=== PATIENT | female | born 1930 | race Caucasian/White ===

== ENCOUNTER 2019-06-20 14:51 | Inpatient (IN) | payer OTHER ==
[~2019-06-20] VITALS: Ht 162.6 cm; Wt 62.2 kg
--- NOTE | ~2019-06-20 | EMS ---
[address] [address] EMS Patient Care Report Name: WENDY COBURN Room #: CHEYENNE COMBS M.R.#: [id number] Admission: 06/20/19 Attend Phys: Discharge: Date of : [birth year] Report #: [id number] THIS REPORT FOR: //name// Report Transmitted: 06/20/2019 17:28 EMS Care Summary [facility] MED-ACT Incident [id number] @ 06/20/2019 14:09 Incident Location [address] [place] [address] Patient WENDY COBURN Female, 88 Years 1930 Patient Address [address] [place] [address] Patient History Other, Patient Allergies Other drug allergy, Patient Medications Other, Chief Complaint Nausea and vomiting Disposition Transported No Lights/[place] Dispatch Reason Sick Person Transported To [facility] Narrative CHIEF COMPLAINT: Nausea, vomiting, and hypokalemia H.P.I.: [facility] [address] [place] [address] EMS Patient Care Report Name: WENDY COBURN Room #: CHEYENNE COMBS M.R.#: [id number] Admission: 06/20/19 Attend Phys: Discharge: Date of : 08/21[birth year] Report #: [id number] Wendy Coburn. an 88 y.o.f., has been nauseated and vomiting for the past 34-35 hrs. No treatment given for her nausea by assisted. Labs were drawn yesterday and revealed low potassium level, amongst other adverse levels. Dr. Saenz ordered ambulance transport to [facility] for care. UPON ARRIVAL: Squad 47 crew brought Wendy to us in a wheel chair. Wendy was awake and in no distress and had no complaints. She reported she became nauseated only when taking food, drink or pills by mouth. DISPOSITION: Wendy was assisted to the stretcher, secured in the usual manner. Transport was non-emergent to [facility]. ECG, V/S monitored; info-only radio report. We were directed to rm. 5. We slid Close to the hospital bed. Junie, an RN, received the paperwork and my report. Initial Vitals @14:37Pain: 0/10,DE Suspected: false @14:36Pain: 0/10,DE Suspected: false @14:36P: 96,R: 30,BP: 170/116,Pain: 0/10,GCS: 15,SpO2: 96,Revised Trauma: 11, @14:30P: 98,R: 18,BP: 155/84,Pain: 0/10,GCS: 15,SpO2: 96,Revised Trauma: 12, Assessments @14:30MENTAL:No Abnormalities,SKIN:HEENT:Head/Face: No Abnormalities,Eyes: No Abnormalities,Neck/Airway: No Abnormalities,LUNG SOUNDS:ABDOMEN:PELVIS//GI:EXTREMITIES:Left Leg: Edema,Right Leg: Edema,PULSE:NEURO:No Abnormalities, Impression Nausea Timeline 14:07,Call Received 14:07,Psap Call 14:09,Dispatched 14:10,En Route 14:18,On Scene 14:24,At Patient 14:30,BP: 155/84 M,PULSE: 98,RR: 18 R,SPO2: 96 Ox,ETCO2: ,BG: ,PAIN: 0,GCS: 15, 14:32,Depart Scene 14:36,BP: / M,PULSE: ,RR: R,SPO2: Ox,ETCO2: ,BG: ,PAIN: 0,GCS: , 14:36,BP: 170/116 M,PULSE: 96,RR: 30 R,SPO2: 96 Ox,ETCO2: ,BG: ,PAIN: 0,GCS: 15, 14:37,BP: / M,PULSE: ,RR: R,SPO2: Ox,ETCO2: ,BG: ,PAIN: 0,GCS: , [address] [address] EMS Patient Care Report Name: WENDY COBURN Room #: REG GARRET Montano.#: [id number] Admission: 06/20/19 Attend Phys: Discharge: Date of : 08[birth year] Report #: [id number] 14:40,At Destination 15:25,Call Closed Disclaimer v1.1 Copyright 2020 [employer] This EMS Care Summary contains data elements from the applicable legal record (which may be displayed differently). It is designed to provide pertinent information for the following purposes: continuity of care, clinical quality, and state data reporting. The complete legal record is available to ED staff and administrators of the receiving hospital in [employer]'s Patient Tracker. All data is provided "as is."
[~2019-06-20 14:51] MED LIST: NORCO 5-325 TA1 EACH PO
[2019-06-20 14:54] VITALS: BP 157/90
[2019-06-20 17:58] LABS: HEMATOCRIT 30.4 % (37.0-47.0); HEMOGLOBIN 10.5 gm/dL (12.0-15.0); MCH 32.1 pg (26.0-34.0); MCHC 34.6 g/dL (28.0-37.0); MCV 92.7 fL (80.0-100.0); PLATELET COUNT 112 thou/uL (150-400); RBC 3.28 mil/uL (4.20-5.00); RDW 16.4 % (10.5-14.5); WBC 6.3 thou/uL (4.0-11.0)
[2019-06-20 18:19] LABS: ABSOLUTE NEUTROPHILS 2.7 thou/uL (1.4-8.2); ATYPICAL LYMPHS 1 %
[2019-06-20 18:20] LABS: ANISOCYTOSIS 2+; POLYCHROMASIA OCCASIONAL
[2019-06-20 18:21] LABS: ALBUMIN 2.5 g/dL (3.4-5.0); ANION GAP 13 mmol/L (7-16); BUN 10 mg/dL (7-18); CALCIUM 8.8 mg/dL (8.5-10.1); CHLORIDE 103 mmol/L (98-107); CO2 25 mmol/L (21-32); CREATININE 1.1 mg/dL (0.6-1.0); GLUCOSE 87 mg/dL (74-106); LIPASE 65 U/L (73-393); SGOT 54 U/L (15-37); SGPT 29 U/L (30-65); SODIUM 141 mmol/L (136-145); TOTAL BILIRUBIN 0.5 mg/dL (<0.1-1.0); TOTAL PROTEIN 5.7 g/dL (6.4-8.2); TROPONIN-I <0.06 ng/mL (<0.06)
[2019-06-20 18:23] LABS: POTASSIUM 2.7 mmol/L (3.5-5.1)
[2019-06-20 18:39] LABS: ICTOTEST (BILI CONFIRMATORY) Negative (Negative); URINE BILIRUBIN 1+ (Negative); URINE BLOOD 1+ (Negative); URINE CLARITY SL CLOUDY; URINE COLOR YELLOW; URINE GLUCOSE-RANDOM* NEGATIVE (Negative); URINE KETONES TRACE (Negative); URINE LEUKOCYTES-REFLEX 3+ (Negative); URINE NITRITE-REFLEX NEGATIVE (Negative); URINE PROTEIN (DIPSTICK) 1+ (Negative); URINE SPECIFIC GRAVITY 1.015 (1.005-1.035); URINE UROBILINOGEN 0.2 E.U./dl (0.2-1.0)
[2019-06-20 18:46] LABS: BACTERIA-REFLEX >30 Many /HPF (None Seen); CASTS None Seen /LPF (None Seen); CRYSTALS None Seen /LPF (None Seen); SQUAMOUS 0-3 Few /LPF (0-3); TRANSITIONAL EPITHEL CELL 0-3 Few /LPF (None Seen); URINE RBC 0-2 Rare /HPF (0-2); URINE WBC-REFLEX >25 Many /HPF (0-5)
[2019-06-20] MEDS ORDERED: PROAIR HFA8.5 GM INH (21:13)
[2019-06-20] MEDS ORDERED: LEVO-T50 MCG PO (21:13)
[2019-06-20] MEDS ORDERED: LEVO-T75 MCG PO (21:14)
[2019-06-20] MEDS ORDERED: FOLIC ACID1 MG PO (21:14)
[2019-06-20] MEDS ORDERED: FAMOTIDINE 10 M10 MG PO (21:14)
[2019-06-20] MEDS ORDERED: VITAMIN D21250 MC1 PO (21:15)
[2019-06-20] MEDS ORDERED: ELIQUIS2.5 MG PO (21:15)
[2019-06-20] MEDS ORDERED: MELATONIN1 M1 PO (21:16)
[2019-06-20] MEDS ORDERED: ZESTRIL5 MG PO (21:16)
[2019-06-20] MEDS ORDERED: ANTACID650 MG PO (21:16)
[2019-06-20] MEDS ORDERED: NYSTATIN100000 UNI PO (21:17)
[2019-06-20] MEDS ORDERED: POTASSIUM20 PO (21:18)
[2019-06-20] MEDS ORDERED: ZOFRAN4 MG PO (21:18)
[2019-06-20] MEDS ORDERED: ARTIFICIAL TEAR1510 OPHTHALMIC (21:20)
[2019-06-20] MEDS ORDERED: BAZA CR.1 E1 TOP (21:21)
[2019-06-20] MEDS ORDERED: DIFLUCAN100 MG PO (21:22)
[2019-06-20] MEDS ORDERED: FUROSEMIDE 20 M20 M1 PO (21:22)
[2019-06-20] MEDS ORDERED: KLOR-CON 10 ER10 MEQ PO (21:24)
[2019-06-20] MEDS ORDERED: BENADRYL25 MG PO (21:25)
[2019-06-20] MEDS ORDERED: KLOR-CON M2020 MEQ PO (21:28)
[2019-06-20 21:49] VITALS: BP 165/84
--- NOTE | 2019-06-20 23:44 | NUR ---
MULTIPLE ATTEMPTS AT IV ACCESS WITHOUT LONG LASTING SUCCESS. IV STARTED BY IV THERAPY HAS INFILTRATED. POTASSIUM AND CEFTRIAXONE HAVE INFUSED. DISCUSSED WITH DR SURESH. WILL HAVE IV THERAPY LOOK FOR IV ACCESS IN THE AM TALKED WITH DAUGHTER AND PT, THEY ARE AGREEABLE WITH THIS. DAUGHTER REPORTS THAT PT HAS ALWAYS HAD PICC LINES DURING PRIOR HOSPITALIZATIONS.
[2019-06-21] VITALS (9 sets, daily range): BP systolic 138–175; BP diastolic 61–84
--- NOTE | 2019-06-21 01:43 | NUR ---
0005 ASSUMED CARE OF PT AFTER REPORT FROM [facility] in ER. 0030 BASELINE ASSESSMENT COMPLETED, PT IS PALE WITH CREPE FRAIL SKIN, AWAKE AND ALERT ORIENTED TO PERSON AND YEAR ONLY, UNABLE TO ANSWER MANY QUESTIONS, ACCORDING TO PAPERWORK, DAUGHTER TIRSO IS DPOA PHONE NUMBER IN CHART. SKIN IS WARM AND DR TO TOUCH, WITH 2+ PITTING EDEMA TO LLE AND 1+ PITTING EDEMA TO RLE. PT STATES LLE IS USUALLY MORE SWOLLEN. PT DENIES PAIN AT THIS TIME, BUT IS PAINFUL WITH MOVEMENT. LCTAB, WITH UNLABORED RESPIRATIONS, PEDAL PULSES AND RADIAL PULSES PALPABLE TO 2+. PER REPORT PT IS INCONTINENT OF URINE AND STOOL. ATTEMPT X2 FOR IV PLACEMENT WITH NO SUCCESS. PT IS ASKING THAT I LEAVE HER ALONE AND LET HER SLEEP, UNWILLING TO ANSWER ANY MORE QUESTIONS AT THIS TIME. FALL PRECAUTIONS IN PLACE, WILL REPOSITION Q2 HOURS SECONDARY TO SMALL AREA OF OPEN SKIN ON LEFT BUTTOCK, BARRIER CREAM AND FOAM DRESSING APPLIED, ALSO REDDENED BLANCHABLE AREA TO MID SPINE. PT IS CLOSE TO NURSES STATION, AND BED ALARM ON. WILL CONTINUE TO MONITOR
[2019-06-21 03:27] LABS: HEMATOCRIT 27.1 % (37.0-47.0); HEMOGLOBIN 8.8 gm/dL (12.0-15.0); MCH 30.8 pg (26.0-34.0); MCHC 32.5 g/dL (28.0-37.0); MCV 94.6 fL (80.0-100.0); RBC 2.87 mil/uL (4.20-5.00); RDW 16.3 % (10.5-14.5)
[2019-06-21 03:37] LABS: CALCIUM 8.1 mg/dL (8.5-10.1); MAGNESIUM 1.7 mg/dL (1.8-2.4)
--- NOTE | 2019-06-21 08:22 | EKG ---
[facility] [place] [address] ELECTROCARDIOGRAM REPORT Name: WENDY ROSAS Room #: 362-P ADM IN M.R.#: [id number] Admission: 06/20/19 Attend Phys: Emiliano Alvarez MD Discharge: Date of : 08/21/[birth year] Report #: [id number] THIS REPORT FOR: cc: Dany Burns MD, Neal A. 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1930 Requested By: Trent Ulloa Order Number: [id number] MD: Brown Colbert Measurements Intervals [place] Rate: 85 P: 17 ME: 151 QRS: -19 QRSD: 94 T: 146 QT: 368 QTc: 438 Interpretive Statements Sinus rhythm Atrial premature complex Probable anteroseptal infarct, age indeterminate Nonspecific T wave abnormality No previous ECG available for comparison Electronically Signed On 06-21-2019 8:20:31 CDT by Brown Colbert [email or web address] <ELECTRONICALLY SIGNED> By: Brown Colbert MD, [facility] 06/21/19 0820 180 180 Brown Colbert MD, [facility] /EPI
--- NOTE | 2019-06-21 12:09 | NUR ---
INITIAL ASSESSMENT: Received consult. SW reviewed chart and spoke with nursing and attending physician. Pt was admitted from [facility] due to UTI/vomiting/nausea. Pt is in Enhanced Isolation to r/o COVID-19. Test result is negative. Pt was to be discharged from [facility] on 06/23, as she will have exhausted her Medicare skilled benefit at that time. Pt's dtr informed of anticipated discharge date. SW left voice message for pt's dtr, Enedelia, to discuss discharge plan. [facility] states that pt's dtr was supposed to be working on a [place]-Med[place] application to assist with half-way care placement. Awaiting call back from pt's dtr at this time. [facility] is following to assist as needed with discharge planning.
--- NOTE | 2019-06-21 13:42 | NUR ---
PT'S FIRST COVID TEST WAS NEGATIVE AT 06/20/19, PT CAME FROM SNF, RN REFUSED TO TAKE MEDICATIONS AND EATING POOR, RN HAS REPORTED TO DR ABOUT PT'S REFUSION AND ABNORMAL LAB RESULTS.NEW ORDER PT HAS SECOD COVID TEST TODAY ABOUT 1300PM.
--- NOTE | 2019-06-21 19:40 | NUR ---
PT KNOWS HER NAME, BUT PT IS CONFUSED AT TIME, RN HAS REPORTED DR ABOUT PT REFUSED MEDICATIONS, AND POOR EATING AND DRINKING, RN HAS REPORTED DR ABOUT PT'S ABNORMAL LAB RESULTS AND TAVON RESULTS , NEW ORDER RECEIVED, PT'S POTASSIUM AND MAG HAVE REPLACED BY IV , PT STARTS IV ABX FOR UTI, PT DOES NOT HAVE SOB AND N/V BY THIS TIME.
--- NOTE | 2019-06-21 19:44 | NUR ---
RN HAS REPORTED TO ID DR ESPERANZA GUARDADO, PT'S 2 TIMES COVID RESULTS ARE NEGATIVED, PT DOES NOT HAVE FEVER AND SOB, SO IT IS OK TO OFF ISOLATION FROM DR MATA .
--- NOTE | 2019-06-21 21:24 | NUR ---
Orders received to transfer ptient off unit per Dr Steve Rucker. COVID negative x 2 on 06/19 and 06/20. Magnesium and potassium replaced. IVfluids infusing. Incontinent of bowel and bladder. Venous doppler positive left lower extremity. Patient on Apixaban, Payton Molina notified. Patient to transfer to [facility]. Awaiting floor to accept patient. Daughter Enedelia notified of patient transfer and expressed desire not to inform patient of brain tumor. For MRI of the head in am.
--- NOTE | 2019-06-21 23:43 | NUR ---
Report given to Lauren BAZAN. Transfered per bed to 462.
[2019-06-22 00:24] VITALS: BP 140/61
[2019-06-22 04:13] VITALS: BP 147/62
[2019-06-22 04:46] LABS: CALCIUM 8.3 mg/dL (8.5-10.1); MAGNESIUM 2.4 mg/dL (1.8-2.4); POTASSIUM 3.4 mmol/L (3.5-5.1)
--- NOTE | 2019-06-22 04:53 | NUR ---
RECEIVED REPORT FROM HORTENSIA WEISS ON 3W; PT ARRIVED TO ROOM 462 AT 2315. PT SLEEPY BUT AROUSEABLE FOR TURNS AND MIDNIGHT MEDS. DENIED PAIN OR SOB. COMPLAINED THAT SHE WOULD GET NAUSEATED IF SHE TOOK ANY PILLS, BUT WAS ABLE TO TAKE SODIUM BICARB WITHOUT ISSUE. IVF INFUSING. LEFT LEG HAS 3+ PITTING EDEMA; BLANCHING REDNESS TO LEFT HEEL, ELEVATED WITH PILLOW. NO OTHER CONCERNS, WILL CONTINUE TO MONITOR.
[2019-06-22 07:35] VITALS: BP 165/81
--- NOTE | 2019-06-22 10:20 | NUR ---
ASSUMED CARE AT 0700. PT ALERT AND ORIENTED TO SELF AND PLACE. C/O NAUSEA AND VOMITING. PT UNABLE TO EAT, VOMITED WHILE GIVEN AM MEDS. PRN MED GIVEN. VSSA/RA ON TELE. PIV INFUSING WITHOUT COMPLICATIONS. LEFT LEG SWOLLEN, ELEVATED. WILL CONTINUE TO MONITOR
--- NOTE | 2019-06-22 10:24 | HC ---
[facility] [place] [address] CONSULTATION Name: WENDY ROSAS Room #: 462-P ADM IN M.R.#: [id number] Admission: 06/20/19 Attend Phys: Emiliano Alvarez MD Discharge: Date of : 08/21/[birth year] Report #: [id number] THIS REPORT FOR: cc: Dany Burns MD, Neal A. MD Althoff, Jeffrey R. MD ~ CC: Emiliano Burns DATE OF SERVICE: 06/21/2019 CHIEF COMPLAINT: Left gluteal ulceration. HISTORY OF PRESENT ILLNESS: This is an 88-year-old female patient who was admitted from one of the [facility] healthcare facilities with chronic urinary tract infection. She was noted to be hypokalemic. She is noted to have an ulceration to her buttocks and I have been asked to see her with regard to wound care. The patient cannot provide a lot of information about herself at this time. PAST MEDICAL HISTORY: Per her records, it is noted for hypertension, atrial fibrillation, hypercholesterolemia, hypothyroidism, GERD, constipation, hysterectomy, previous sinus surgery, knee arthroscopies, cholecystectomy and a malignant brain tumor, details unavailable for review. SOCIAL HISTORY: Negative for alcohol or tobacco use. FAMILY HISTORY: Noncontributory. MEDICATIONS: Include albuterol, levothyroxine, folic acid, famotidine, ergocalciferol, apixaban, melatonin, Zestril, Nitrostat, Zofran, Padmini, Diflucan, furosemide, potassium chloride. REVIEW OF SYSTEMS: Not obtainable due to the patient's condition due to her poor memory and are otherwise negative other than what is mentioned in her history of present illness. PHYSICAL EXAMINATION: VITAL SIGNS: At this time include temperature 36.7, pulse 92, respiratory rate 18, blood pressure 159/75. GENERAL: This is a chronically ill-appearing female patient who appears to be in no distress. HEENT: Head normocephalic. Nose and throat are clear. LUNGS: Clear. ABDOMEN: Soft. Bowel sounds present. EXTREMITIES: Examination of the gluteal region demonstrates what appears to be [facility] [address] [place] [address] CONSULTATION Name: WENDY ROSAS Room #: 462-P ADM IN M.R.#: [id number] Admission: 06/20/19 Attend Phys: Emiliano Alvarez MD Discharge: Date of : 08/21/[birth year] Report #: [id number] a small skin tear or abrasion to the left gluteal region. It appears to be in a stage of healing, is not infected. The port that remains open is clean with granulation tissue. Heels are intact. She has 3+ edema of the lower extremities with some ecchymosis, but no open ulceration. NEUROLOGIC: The patient is awake. She appears to move symmetrically. LABORATORY STUDIES: Include white blood cell count 6000, hemoglobin 8.8 with a sodium 141, potassium 3.0, chloride 106, CO2 of 24, BUN 9, creatinine 1.0, glucose of 85. Albumin 2.5. CLINICAL IMPRESSION: 1. Skin tear to the left gluteal region. 2. Hypokalemia. 3. Recurrent and chronic urinary tract infection. 4. Moderate protein-calorie malnutrition. RECOMMENDATIONS: At this point in time, the patient will be placed on low air loss mattress. She will need two q. 2 hour turning and repositioning. Recommend PRAFO boots for pressure prophylaxis while she is in bed. Recommend moisture barrier cream to the sacral gluteal region b.i.d. and p.r.n. She is incontinent, has a PureWick catheter in place, which I think is appropriate. We will recommend continuation of current medications and aggressive nutritional support. <ELECTRONICALLY SIGNED> By: Stalin Guzman MD 06/22/19 1024 1723 1838 Stalin Guzman MD /nt
--- NOTE | 2019-06-22 14:10 | NUR ---
CM CALLED AND SPOKE WITH PT'S DTR DANY AND SHE INDICATED THAT SHE WAS AGREEABLE WITH MOTHER DISCHARGING BACK TO [facility] ONCE MEDICALLY STABLE. SHE AND FACILITY WORKED OUT $170.00/DAY TO PAY UPON HER RETURN. CLINICAL WAS SENT TO [facility] AND LIAZEN ROSARIO WAS NOTIFIED OF POSSIBLE WEEKEND DISHCARGE. SHOUL PT BE MEDICALY STABLE TO DC OVER WEEKEND CONTACT MARLENE CHAPIN AT TO ARRANGED TRANSPORT. FAX ORDERS TO . REPORT TO BE CALLED TO .
[2019-06-22 15:13] VITALS: BP 167/87
[2019-06-22 16:23] LABS: TSH 2.264 uIU/mL (0.358-3.740)
[2019-06-22 19:36] VITALS: BP 137/75
--- NOTE | 2019-06-23 02:40 | NUR ---
PATIENT ALERT AND ORIENTED X2. [place]. REMAINS ON BEDREST DURING THE NIGHT. COOPERATIVE WITH CARE. THIS NURSE CRUSHED MEDS AND MIXED WITH APPLESAUCE AM NURSE REPORTED DIFFICULTY WITH PATIENT HAVING EMESIS AFTER MEDICATION. NO EMESIS NOTED DURING THE NIGHT, HOWEVER, SHE DOES GAG AT TIMES. IVF INFUSING W/O COMPLICTION. REMAINS ON TELE FOR AFIB HISTORY. INCONTINENT. WILL MONITOR.
[2019-06-23 04:04] VITALS: BP 146/69
[2019-06-23 05:10] LABS: HEMATOCRIT 24.9 % (37.0-47.0); HEMOGLOBIN 8.3 gm/dL (12.0-15.0); MCH 31.1 pg (26.0-34.0); MCHC 33.2 g/dL (28.0-37.0); MCV 93.5 fL (80.0-100.0); RBC 2.67 mil/uL (4.20-5.00); RDW 16.7 % (10.5-14.5); WBC 6.8 thou/uL (4.0-11.0)
[2019-06-23 05:18] LABS: CALCIUM 8.1 mg/dL (8.5-10.1); POTASSIUM 3.1 mmol/L (3.5-5.1)
[2019-06-23 07:08] VITALS: BP 142/64
--- NOTE | 2019-06-23 13:14 | NUR ---
Piperacillin was administrated at 1243, discontinued now after talking to Dr. Alvarez
[2019-06-23 14:48] VITALS: BP 165/81
--- NOTE | 2019-06-23 14:56 | NUR ---
bp: 165/81, Dr. Antonio gentile, no response yet. patient asymptomic.
--- NOTE | 2019-06-23 18:39 | NUR ---
Patient bed rest, cooperative and pleasant. afebrile; took medication with apple juice and tea, patient tolerates ice cream, can not tolerate pudding, clear ensure or any kind of thick food. will pass this on to the night nurse.
[2019-06-23 19:20] VITALS: BP 131/91
--- NOTE | 2019-06-24 03:01 | NUR ---
PATIENT ALERT AND ORIENTED TO SELF, HOWEVER, COOPERATIVE WITH CARE. CALLS FOR THE BEDPAN APPROPRIATELY. NO BM DURING THE NIGHT. EDEMA IS GENERALIZED. NEW ORDER FOR LEVOFLOXACIN WILL BEGIN TODAY FOR UTI AT 1400. POOR APPETITE WITH GAGING, HOWEVER, NO EMESIS DURING THE NIGHT. PLEASANTLY CONFUSED AT TIMES. WILL MONITOR.
[2019-06-24 04:09] VITALS: BP 144/67
[2019-06-24 07:15] VITALS: BP 163/76
[2019-06-24 14:38] VITALS: BP 158/67
--- NOTE | 2019-06-24 15:46 | NUR ---
PT ALERT AND ORIENTED TIMES THREE. VSS, SR ON TELL. PT DENIES PAIN/SOA. PT TOLERATES MEDS. POOR APPETITE C/O OF FEEING NAUSEATED, BUT NO VOMITING. SPOKE WITH PT DAUGHTER SEVERAL TIMES THIS SHIFT TO UPDATE ON CARE. PT RESTING WILL CONTINUE TO MONITOR.
[2019-06-24 20:25] VITALS: BP 120/61
--- NOTE | 2019-06-25 03:42 | NUR ---
PATIENT ALERT AND ORIENTED X2 WITH CONFUSION. CONTINENT OF URINE WITH NO BM DURING THE NIGHT. POOR NUTRITION REPORTED FROM AM NURSE DUE TO SWALLOWING DIFFICULTY. THIS NURSE SPOKE TO PATIENTS DAUGHTER WHO WAS VERY UPSET DUE TO NOT BEING ABLE TO VISIT PATIENT. THIS NURSE EXPLAINED THE SITUATION REGARDING THE COVID EPIDEMIC AND GAVE INFORMATION ON PATIENTS STATUS AT THAT TIME. RESTING QUIETLY. DENIES PAIN. WILL MONITOR.
[2019-06-25 04:41] VITALS: BP 150/65
[2019-06-25 07:49] VITALS: BP 152/68
[2019-06-25 10:51] LABS: APTT 28.2 Seconds (24.5-32.8); FIBRINOGEN 261.5 mg/dL (210-360); INR 1.1; PROTIME 11.1 Seconds (9.3-11.4)
[2019-06-25 11:16] VITALS: BP 112/43
[2019-06-25 12:28] LABS: CSF COLOR LIGHT RED; VOLUME 12 ml
[2019-06-25 12:29] LABS: CSF CLARITY CLOUDY
[2019-06-25 12:49] LABS: CSF GLUCOSE 53 mg/dL (40-70); CSF PROTEIN 73 mg/dL (15-45)
[2019-06-25 13:21] LABS: CSF RBC 12964 /mm3
[2019-06-25 13:54] LABS: CSF EOSINOPHILS 0 %; CSF LYMPHOCYTES 22 %; CSF POLYS 70 %
[2019-06-25 13:58] LABS: CSF WBC 22 /mm3 (0-10)
--- NOTE | 2019-06-25 14:14 | NUR ---
CLINICAL UPDATE SENT TO [facility]. PT HAVING AN LP AND A VIDEO SWALLOW THIS DAY. CM FOLLOWING REGARDING DC PLANNING.
--- NOTE | 2019-06-25 14:41 | NUR ---
FAXED CLINICAL UPDATE TO [facility] SPOKE WITH MARLENE IN ADM SHE RECEIVED UPDATE. DP TO FOLLOW.
[2019-06-25 16:22] VITALS: BP 156/74
--- NOTE | 2019-06-25 20:08 | NUR ---
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 HAd a spinal tap done this am, labs drawn and sent. Scheduled for swallow study bugt was not achived since pt was off the unit. Critical lab informed to the MD (CSF WBC). REquested to convert her medication from PO to IV, placed on NPO til swallow study is done, pt is high risks for aspiration. Pt calls out appropriately, does wilcox an extgernal female cat. POC followed wit h no signs or verbalizations of distress.
[2019-06-25 20:17] VITALS: BP 154/78
[2019-06-26 03:42] VITALS: BP 166/61
--- NOTE | 2019-06-26 04:30 | NUR ---
Assumed pt care at 1900. Pt's A/OX2,VSS. Denies pain on assessment. Assist of 2 with transfers. Pt's NPO d/t risk of aspiration,scheduled to have a video swallow 06/25. IV on RUE infiltrated, removed and reinserted on left hand. Edema on LLE persists with some blisters noted,elevated as tolerable. Fall precautions in place,calls approp for help.
[2019-06-26 07:18] VITALS: BP 155/67
--- NOTE | 2019-06-26 10:27 | NUR ---
Nutrition: Pt with very poor oral intake over admit due to dysphagia. Videoswallow pending today. REC change IVFS to clinimix PPN with 250 mL 20% lipids daily til further POC determined. May need NGT for enteral feeds.
[2019-06-26 15:15] VITALS: BP 141/63
--- NOTE | 2019-06-26 15:18 | NUR ---
ON-GOING ASSESSMENT: CM REVIEWED CHART. PT HAD VIDEOSWALLOW COMPLETED AND HAS PENETRATION/ASPIRATION WITH THIN LIQUID BARIUM AND INTOLERANCE OF APPLESAUCE CAUSING HER TO GAG. GI IS FOLLOWING PATIENT AND MAY CONSIDER EGD/MANOMETRY. CM UPDATED LIASON AT [facility]. PLANS ARE FOR PATIENT TO RETURN TO [facility] ONCE MEDICALLY STABLE.
--- NOTE | 2019-06-26 17:39 | NUR ---
VASCULAR ACCESS ASSESSED BOTH ARMS, EDEMATOUS AND FLUID FILLED UNABLE TO VISUALIZE VESSELS FOR PIV. ATTEMPTED UNSUCCESSFUL. ANABELL BAZAN NOTIFIED.
[2019-06-26 19:56] VITALS: BP 126/57
--- NOTE | 2019-06-26 20:29 | NUR ---
Received awake on bed. On nothing per orem- pt informed and aware; pt scheduled for video swallow test today. On heart monitoring- strips attached to chart; no complaints of chest pain, crushing or heaviness sensation. On room air. Vital signs stable. With external marion in place- output measured and recorded accordingly; with episodes of incontinence at times. With NS at 75cc/hr, infusing well at L hand- infiltrated; for reinsertion. Pt with redness on her buttocks- pt turned on her sides. With bilateral leg edema and R upper arm edema- kept elevated. Pt went down for video swallow test- transferred back to room safely; pt may have Pureed diet as per [facility]; meds crushed and mixed with apple sauce- orders made. Tried to re-insert IV but unable to start a line- called IV nurse. IV nurse Bety tried to start IV on pt but had difficulties- able to start 1 at L AC but doubtful that it will stay; pt not eligible for a PICC or midline because pt is full of fluids- called Dr Alvarez. Physician called back and informed him that pt does not have any IV access now, and IV nurse unable to start PICC of midline- to call IR to for PICC line, called them and they said unable to insert today, pt scheduled for tomorrow- physician informed and agreed. Physician re-informed re: generalized edema- to hold IV fluids and PPN; no orders for PO and IV diuretics. Incontinent of bowel and bladder- checked frequently and changed as needed. Pt seen by [facility] team- pt scheduled for EGD tomorrow. Verbal consent gained thru telephone from her daughter Enedelia; verified by co-nurse Shefali white informed re: PICC line insertion and EGD. Pt for NPO post midnight, pt informed and aware- night time nanny nurse informed as well. To continue monitoring patient.
--- NOTE | 2019-06-27 04:00 | NUR ---
ASSUMED CARE OF PT AT 1900HRS. PT IS AOX2 AND NEEDS MUST BE ANTICIPATED. FALLL PRECAUTION IN PLACE. PT HAS AN EXTERNAL FEMALE CATH IN PLACE FOR INCONTINENCE. PT GROVER NO IV ACCESS AND PROVIDER IS AWARE. NO ROUTE FOR PPN OR IV ABX AT THIS TIME. POOR VASCULAR ACCESS FOR PT AND PICC MAY NEED TO BE PLACED BEFORE PROCEDURE. PT PLACED NPO AT [place] FOR EGD IN THE AM. VSS AND NO S/S OF ACUTE DISTRESS. WILL CONTINUE TO MONITOR.
[2019-06-27 04:04] VITALS: BP 158/68
[2019-06-27 05:59] LABS: HEMATOCRIT 26.8 % (37.0-47.0); MCH 31.5 pg (26.0-34.0); MCHC 33.5 g/dL (28.0-37.0); MCV 94.1 fL (80.0-100.0); RBC 2.84 mil/uL (4.20-5.00); RDW 17.2 % (10.5-14.5); WBC 7.2 thou/uL (4.0-11.0)
[2019-06-27 06:13] LABS: CALCIUM 8.5 mg/dL (8.5-10.1); CREATININE 0.9 mg/dL (0.6-1.0); POTASSIUM 3.1 mmol/L (3.5-5.1)
[2019-06-27 07:31] VITALS: BP 158/72
--- NOTE | 2019-06-27 08:00 | EKG ---
[facility] [place] [address] [place] [address] ELECTROCARDIOGRAM REPORT Name: WENDY ROSAS Room #: 462- ADM IN M.R.#: [id number] Admission: 06/20/19 Attend Phys: Emiliano Alvarez MD Discharge: Date of : [birth year] Report #: [id number] THIS REPORT FOR: cc: Dany Burns MD, Neal A. 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1930 Requested By: Payton Molina Order Number: [id number] MD: Brown Colbert Measurements Intervals [place] Rate: 91 P: 46 CA: 170 QRS: -9 QRSD: 103 T: 151 QT: 376 QTc: 463 Interpretive Statements Sinus rhythm Probable anterior infarct, age indeterminate Compared to ECG 06/20/2019 18:03:11 Atrial premature complex(es) no longer present Nonspecific change in the T wave abnormality Electronically Signed On 06-27-2019 7:58:15 CDT by Brown Colbert [email or web address] <ELECTRONICALLY SIGNED> By: Brown Colbert MD, FAC 06/27/19 0758 044 0 Brown Colbert MD, FAC /EPI
--- NOTE | 2019-06-27 13:53 | NUR ---
CARE TEAM INDICATED THAT PT IS SCHEDULED TO HAVE AN EGD TUESDAY DUE TO SCHEDULING. IT IS ANTICIPATED THAT PT WILL GO TO [facility]. CM TO FOLLOW INDICATED WITH DC PLANNING.
--- NOTE | 2019-06-27 14:35 | NUR ---
Received awake on bed. On nothing per orem, pt informed and aware; mouth care rendered. On room air. Vital signs stable. No IV access- physician aware. Scheduled for PICC line insertion under IR and EGD today- consent signed yesterday. With external marion in place- output measured and recorded accordingly; incontinent of bowels- checked frequently and changed as needed. Assisted in ADLs. With redness on her buttocks- turned frequently and barrier cream applied. To continue monitoring patient. Pt seen by [facility], EGD could not be done today- pt had a dose of Apixaban last night and still no IV access- followed up with IR and said they will be doing pt's procedure this afternoon instead due to number of procedures today- [facility] informed; EGD rescheduled for Tuesday- Daughter informed re: updates. Pureed diet resumed for lunch- assisted and encouraged in eating and drinking. Followed up with IR regarding PICC line insertion- will call back. Pt brought down to IR via bed. To continue monitoring patient.
[2019-06-27 15:22] VITALS: BP 170/79
[2019-06-27 19:50] VITALS: BP 157/77
--- NOTE | 2019-06-28 03:40 | NUR ---
ASSUMED CARE OF PT AT 1900HRS. PT IS AOX1-2 AND NEEDS MUST BE ANTICIPATED. FALL PRECAUTION IN PLACE. PT TURNED Q2-3H. PT DENIED PAIN, NAUSEA OR SOA. PT HAS A EXTERNAL FEMALE CATH IN PLACE. PPN INFUSING. PT WAS ABLE TO FET COMFORTABLE AND SLEEP PART OF THE SHIFT. VSS AND NO S/S OF ACUTE DISTRESS. WILL CONTINUE TO MONITOR FOR CHANGES.
[2019-06-28 04:48] VITALS: BP 126/59
[2019-06-28 08:51] VITALS: BP 168/80
[2019-06-28 09:26] VITALS: BP 166/84
--- NOTE | 2019-06-28 09:44 | NUR ---
BP:166/84, Dr. Alvarez notified. asking the staff to keep monitoring.
--- NOTE | 2019-06-28 11:12 | NUR ---
A female professional told the staff that the paitent's IV infusion was disconnected about 2 minutes after PT left the patient. The staff checked, and reconnected the IV infusion. The staff asked the other staff at the nursing station, none of them claimed she had disconnect the IV infusion.
--- NOTE | 2019-06-28 11:53 | NUR ---
Saw noteof Dr. Hallman for CSF labs to be run as per order on the . Collected it from our end of the system for lab lo see. Informed nurse assigned to the pt. And spoke to the lab.
--- NOTE | 2019-06-28 15:52 | NUR ---
PT IS TO HAVE AN EGD TOMORROW. PLAN IS FOR PT TO ESUME SKILLED REHAB SERVICES AT [facility] ONCE MEDICALLY STABLE. CM TO FOLLOW INDICATED WITH DC PLANNING.
--- NOTE | 2019-06-28 16:13 | NUR ---
Alert and oriented to person and place. calm and cooperative. poor appetite, a few spoon of thick water for breakfast and dinner; signs of swallowing difficulty. no vomitting happened. left leg is swelling, warm to touch, denied pain; BP elevated, Dr. Alvarez was aware of it. afebrile.
[2019-06-28 17:54] VITALS: BP 154/76
[2019-06-28 19:16] VITALS: BP 148/71
--- NOTE | 2019-06-29 04:49 | NUR ---
ASSUMED PT CARE AT 1900. PT IS DROWSY. NO SIGN OF DISTRESS NOTED IN PT. PT AROSUABLE TO COMMAND. DENIES ANY PAIN. FALL PRECAUTION IN PLACE. ASSESSMENT COMPLETED AND DOCUMEMTED. CALL LIGHT WITHIN REACH, VITAL SIGNS STABLE. SCHEDULED MEDS ADMINISTERED TO PT. NO SIGN OF DISTRESS NOTED. PT IS NPO AFTER MN FOR AN EGD WITH DILATION. CONTINUE TO MONITOR PT.
[2019-06-29 04:56] VITALS: BP 155/73
[2019-06-29 07:19] VITALS: BP 183/85
--- NOTE | 2019-06-29 11:26 | NUR ---
ASSUMED CARE AT 0700. PT ALERT. CONFUSED. VSSA/RA TELE. NO COMPLAINTS. NPO AWAITING EGD. EXTERNAL FEMALE CATH IN PLACE. PT IS BEDREST WITH MAX ASSIST. CALL IGHT IN REACH. WILL CONTINUE TO MONITOR.
[2019-06-29 15:39] VITALS: BP 184/83
--- NOTE | 2019-06-29 16:09 | NUR ---
IT IS ANTICPATED THAT PT MAY BE MEDICALLY STABLE TO DC TUESDAY BACK TO [facility]. CALL ADMISSIONS AT FOR TRANSPORT. FAX ORDERS TO CALL REPORT TO .
[2019-06-29 19:28] VITALS: BP 175/97
--- NOTE | 2019-06-30 06:00 | NUR ---
Pt. rested quietly during the night when checked on during frequent rounds. She is alert and oriented to self. Encouraged po fluids and meds, but pt. refused. Pt. denies any c/o pain. She has been turned and repositioned during the shift. Bed alarm is on.
[2019-06-30 07:11] LABS: HSV PCR SOURCE CSF
[2019-06-30 08:14] VITALS: BP 148/59
[2019-06-30 13:26] LABS: URINE BILIRUBIN NEGATIVE (Negative); URINE BLOOD NEGATIVE (Negative); URINE CLARITY CLEAR; URINE COLOR YELLOW; URINE GLUCOSE-RANDOM* NEGATIVE (Negative); URINE KETONES NEGATIVE (Negative); URINE LEUKOCYTES-REFLEX NEGATIVE (Negative); URINE NITRITE-REFLEX NEGATIVE (Negative); URINE PROTEIN (DIPSTICK) NEGATIVE (Negative); URINE UROBILINOGEN 0.2 E.U./dl (0.2-1.0)
[2019-06-30 15:49] VITALS: BP 147/68
--- NOTE | 2019-06-30 16:47 | NUR ---
Assumed care of pt at 0700. Q2h turn. Edema 3+ left lower extremity. PICC line in place, PPN infusing. Pt denies pain. External cath in place. Pureed diet, honey thick liquids. Patient refuses to eat/drink anything and to take meds PO. Family and doctor aware. Pt bladder scanner, 550 mL. Patient straight cathed per order. 450 mL out. [facility] consulted for home hospice. Chest x-ray and abd ultrasound ordered. Talked to patient's family on the phone and updated on situation and doctor talked to them from patient's roon as well. Frequent rounding on patient. Fall precautions in place. Will continue to monitor.
[2019-06-30 19:30] VITALS: BP 155/70
--- NOTE | 2019-07-01 01:22 | NUR ---
ASSESSED AT START OF SHIFT. PT ALERT TO SELF. PICC INTACT AND FLUIDS INFUISING. Q2 TURNS DONE. 3+EDEMA NOTED ON LLE ELEVATED ON PILLOW. PO FLUIDS PROVIDED PT REFUSED. EXT FEMALE CATH IN PLACE AND PATENT. REFUSED MIDNIGHT PO PILL. FALL PREQ IN PLACE AND FREQ ROUNDING DONE ALONG WITH VISUAL CHECKS. WILL CONT TO MONITOR TILL EOS.
[2019-07-01 05:00] VITALS: BP 142/60
[2019-07-01 06:19] LABS: HEMATOCRIT 25.6 % (37.0-47.0); HEMOGLOBIN 8.6 gm/dL (12.0-15.0); MCHC 33.6 g/dL (28.0-37.0); MCV 95.1 fL (80.0-100.0); PLATELET COUNT 320 thou/uL (150-400); RBC 2.69 mil/uL (4.20-5.00); RDW 17.3 % (10.5-14.5); WBC 12.2 thou/uL (4.0-11.0)
[2019-07-01 07:13] LABS: ABSOLUTE NEUTROPHILS 8.8 thou/uL (1.4-8.2); PLATELET ESTIMATE NORMAL
[2019-07-01 08:17] LABS: CALCIUM 8.5 mg/dL (8.5-10.1); CREATININE 0.8 mg/dL (0.6-1.0); PHOSPHORUS 3.6 mg/dL (2.5-4.9); POTASSIUM 3.5 mmol/L (3.5-5.1)
[2019-07-01 08:27] VITALS: BP 149/72
[2019-07-01 09:35] LABS: HEMATOCRIT 29.8 % (37.0-47.0); HEMOGLOBIN 9.9 gm/dL (12.0-15.0); MCH 31.7 pg (26.0-34.0); MCHC 33.3 g/dL (28.0-37.0); MCV 95.1 fL (80.0-100.0); RBC 3.13 mil/uL (4.20-5.00); RDW 17.6 % (10.5-14.5)
[2019-07-01 09:48] LABS: PROTIME 10.5 Seconds (9.3-11.4)
[2019-07-01 12:58] LABS: BE(vivo) -0.9 mmol/L (-2 to +3); HCO3 21.9 mmol/L (22.0-26.0); PCO2 29.6 mmHg (35.0-45.0); PO2 71.9 mmHg (80.0-100.0); pH 7.487 (7.360-7.450); sO2 95.7 % (92.0-98.0)
--- NOTE | 2019-07-01 13:45 | NUR ---
PT CARE ASSUMED AT 0700. A&O TO SELF AND SITUATION. PICC LINE DOUBLE LUMEN FLUSHES WELL AND DRAWS BACK. [id number]. PT IS REFUSING TO EAT OR DRINK. PT WAS WILLING TO TAKE HER MORNING MEDICATIONS WITH A BITE OF PUDDING BUT THEN STARTED ASPIRATING AND HAD TO BE SUCTIONED. DR. LOMAX INFORMED THAT PT WAS HAVING A STATUS CHANGE. FAMILY NOTIFIED. EXTERNAL CATH IN PLACE. PT ON HEPARIN DRIP DUE TO CONFIRMED DVT DIAGNOSIS. PT IS BREAETHING LABORED WITH A STABLE 02. PT CHANGED TO NPO. FAMILY PRESENT AT PT BED SIDE. PER DOC ORDER ONE TIME ORDER OF LASIX GIVEN. BLADDER SCANNED RETAINING 438ML. CM CATHETER ORDERED. PT STATUS CHANGED TO COMFORT CARE. DNR. ALL FLUIDS DISCONTINUED. WORKING WITH FAMILY, DR. BLANKENSHIP, AND DR. LOMAX TO GET TRANSFERRED TO A HOSPICE HOUSE. WILL CONTINUE TO MONITOR. CALL LIGHT IN REACH.
[2019-07-01] MEDS ORDERED: TRANSDERM-SCOP1 EACH TRANSDERM (15:44)
[2019-07-01 17:56] VITALS: BP 168/72
--- NOTE | 2019-07-02 05:12 | NUR ---
PT PLACED ON COMFORT CARE. CM PATENT. VERY EDEMATOUS. PLAN IS FOR TRANSFER TO HOSPICE HOUSE 07/01 AT 1100.
[2019-07-02 08:08] LABS: HSV 1 DNA Negative (Negative); HSV 2 DNA Negative (Negative)
[2019-07-02 08:30] VITALS: BP 140/64
--- NOTE | 2019-07-02 09:37 | NUR ---
COMFORT CARE VISIT. PT. DUE TO TRANSFER TO HOSPICE CARE AT 1100 HOURS. SON AND DIL FROM [facility] ARRIVED LAST NIGHT AND WERE ALLOWED TO BE WITH HER THIS MORNING. END OF LIFE PRAYERS AND COMFORT WERE PROVIDED.
--- NOTE | 2019-07-02 10:18 | P ---
[facility] [place] [address] PROCEDURE REPORT Name: WENDY ROSAS Room #: 442- ADM IN M.R.#: [id number] Admission: 06/20/19 Attend Phys: Emiliano Alvarez MD Discharge: Date of : [birth year] Report #: [id number] THIS REPORT FOR: cc: Dany Burns MD,Jaime Kim MD, MD ~ CC: Emiliano Burns DATE OF SERVICE: 06/29/2019 PROCEDURE PERFORMED: Upper endoscopy with biopsies and esophageal dilation. HISTORY OF PRESENT ILLNESS: The patient is an 88-year-old female with recent nausea, vomiting as well as dysphagia. 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 Lumbar puncture was performed recently. She failed a video swallow. Plan is for EGD with dilation. DESCRIPTION OF PROCEDURE: The risks and benefits of the procedure were explained to the patient's durable power of title attorney, those risks including but not limited to bleeding, perforation, the risk of sedation. He understood these risks and gave informed consent. Sedation was given using propofol per anesthesia. Next, using a standard Olympus upper endoscope, the scope was placed in the patient's mouth and advanced under direct vision through the esophagus, stomach and into the second portion of the duodenum. The esophagus was normal throughout. No evidence of stricture or esophagitis was noted. Overall, the gastric mucosa was normal in the fundus and body. There was a mild gastritis in the gastric antrum. Biopsies were obtained to rule out H. pylori. The pylorus was normal and patent. The duodenal bulb, first and second portion were normal. The scope was then brought back up into the patient's stomach and a Savary guidewire was inserted through the scope, leaving the guidewire in place as the scope was then withdrawn. Next, a 51-[place] Savary dilation of the esophagus was then performed without difficulty. The wire and dilator removed. The scope was reintroduced into the patient's stomach. There was no evidence of mucosal tear after dilation. The scope was then withdrawn and the procedure terminated. The patient tolerated the procedure well. IMPRESSION: 1. Mild gastritis. 2. Otherwise, normal upper endoscopy. RECOMMENDATIONS: 1. Await biopsy results. 2. Can continue PPI therapy. 3. Etiology of dysphagia is unclear, now status post dilation. Would recommend [address] [address] PROCEDURE REPORT Name: WENDY ROSAS Room #: 442-P ADM IN M.R.#: [id number] Admission: 06/20/19 Attend Phys: Emiliano Alvarez MD Discharge: Date of : [birth year] Report #: [id number] considering a repeat video swallow to see if improvement in her dysphagia; if there is no improvement, may need to consider a dysmotility disorder. In the meantime, continue PPI. Thank you for allowing me to participate in her care. <ELECTRONICALLY SIGNED> By: Jaime Hart MD 07/02/19 1018 [id number] Jaime Hart MD /nt
--- NOTE | 2019-07-02 11:50 | NUR ---
REPORT CALLED TO HOSPICE HOUSE. TRANSPORTED AT 1110 [facility]. FAMILY IN AGREEMENT WITH TRANSFER. RESPIRATIONS APPEAR SLIGHTLY LABORED - 1 MG MORPHINE GIVEN IV PRIOR TO TRANSFER. GENERALIZED EDEMA. SKIN INTACT.
--- NOTE | 2019-07-02 12:47 | NUR ---
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 RN yesterday arranged [facility] for 1100 dc to hospice house. Notfied RN need outside DNR signed prior to [facility] transport. Sp with hospice house who was aware of admission. Faxed orders. no further needs family aware.
--- NOTE | 2019-07-03 18:07 | PATH ---
[facility] [address] [place] [address] PATHOLOGY RPT PROCEDURE Name: WENDY COBURN Room #: 442-P DIS IN M.R.#: [id number] Admission: 06/20/19 Date of : [birth year] Discharge: 07/02/19 Report #: [id number] Path Case #: [id number] [facility] Accession Number: [id number] . 01 Material submitted: . stomach - BX OF GASTRITIS . 01 Clinical history: . Dysphagia . 02 Diagnosis: Gastric mucosa, gastritis, rule out H. pylori, endoscopic biopsy: - Mild reactive gastropathy. - Negative for intestinal metaplasia or atrophy. - Negative for Helicobacter pylori (properly controlled immunohistochemical stain performed). (IUV:pit 07/03/2019) QTP 07/03/2019 1327 Local . 02 Electronically signed: . Pam Clayton MD, Pathologist NPI- [id number] . 01 Gross description: . The specimen is received in formalin, labeled "Wendy Coburn, BX of gastritis rule out H. pylori" and consists of multiple fragments of pink-hodges tissue measuring 0.6 x 0.4 x 0.2 cm in aggregate which are entirely submitted in A1. ([facility]; 06/29/2019) JFQ/JFOswaldo 06/29/2019 1649 Local . 02 Pathologist provided ICD-10: K31.9 . 02 CPT . 601515, [id number] Specimen Comment: A courtesy copy of this report has been sent to [phone], [phone] Specimen Comment: [id number], Specimen Comment: Report sent to ,DR PACK / DR JOHNSON Performed at: 01 [facility] [address] [id number] MD Reji Thapa MD Phone: [phone] Performed at: [address] [id number] [address] [address] PATHOLOGY RPT PROCEDURE Name: WENDY COBURN Room #: 442-P DIS IN M.R.#: [id number] Admission: 06/20/19 Date of : [birth year] Discharge: 07/02/19 Report #: [id number] Path Case #: [id number] MD Pam Clayton MD Phone: [phone]
== END 2019-07-02 11:34 | DRG 689 ==
LOC: ER 14:51 → 3W 20:34 → EROBS 20:34 → 3W 06-21 00:01 → 4W 06-21 23:43 → 4S 06-30 06:37
PROVIDERS: Emergency Medicine; Internal Medicine; Nurse Practitioner Family; Psychiatry & Neurology Neurology; ADMIT Hospitalist
DX: N39.0 Urinary tract infection, site not specified (principal); G04.81 Other encephalitis and encephalomyelitis; G93.41 Metabolic encephalopathy; E43 Unspecified severe protein-calorie malnutrition; I82.402 Acute embolism and thrombosis of unspecified deep veins of left lower extremity; I82.90 Acute embolism and thrombosis of unspecified vein; L98.419 Non-pressure chronic ulcer of buttock with unspecified severity; R60.9 Edema, unspecified; I48.91 Unspecified atrial fibrillation; Z79.01 Long term (current) use of anticoagulants; K21.9 Gastro-esophageal reflux disease without esophagitis; R47.02 Dysphasia; S30.810A Abrasion of lower back and pelvis, initial encounter; E78.00 Pure hypercholesterolemia, unspecified; E03.9 Hypothyroidism, unspecified; F03.90 Unspecified dementia, unspecified severity, without behavioral disturbance, psychotic disturbance, mood disturbance, and anxiety; E87.6 Hypokalemia; R13.10 Dysphagia, unspecified; K29.70 Gastritis, unspecified, without bleeding; I12.9 Hypertensive chronic kidney disease with stage 1 through stage 4 chronic kidney disease, or unspecified chronic kidney disease; N18.3 Chronic kidney disease, stage 3 (moderate); Z90.710 Acquired absence of both cervix and uterus; Z90.49 Acquired absence of other specified parts of digestive tract; Z79.891 Long term (current) use of opiate analgesic; Z88.8 Allergy status to other drugs, medicaments and biological substances; Z88.5 Allergy status to narcotic agent; Z68.23 Body mass index [BMI] 23.0-23.9, adult; Z79.899 Other long term (current) drug therapy
CPT/HCPCS: 10045; 10100; 10195; 62110; 62900; 70005